=== PATIENT | female | born 1940 | race Caucasian/White ===

== ENCOUNTER → 2018-02-27 | Outpatient (CLI) | payer MEDICARE, BC ==
--- NOTE | 2018-02-27 15:46 | RAD ---
Left ankle, 3 views, 02/27/2018: HISTORY: Postop ankle pain Comparison is made to a study from 02/09/2018. A metallic plate with multiple screws remains in place transfixing the lateral malleolar fracture. 2 [address] screws remain in place traversing the medial malleolar fracture. The fracture fragments remain in good position for healing. No new bony abnormality is detected. There is mild diffuse soft tissue swelling. IMPRESSION: Stable internally fixed ankle fractures Electronically signed by: Maxim Patel MD (02/27/2018 3:43 PM) [facility]
== END | disposition home or self-care (01) ==
LOC: DXRAD 15:03
PROVIDERS: ATTEND Orthopaedic Surgery Sports Medicine
DX: S82.52XD Displaced fracture of medial malleolus of left tibia, subsequent encounter for closed fracture with routine healing (principal); S82.62XD Displaced fracture of lateral malleolus of left fibula, subsequent encounter for closed fracture with routine healing; X58.XXXD Exposure to other specified factors, subsequent encounter
CPT/HCPCS: 73610

== ENCOUNTER → 2018-03-17 | Outpatient (CLI) | payer MEDICARE, BC ==
--- NOTE | 2018-03-17 16:49 | RAD ---
Left ankle, 3 views, 03/17/2018: HISTORY: Postsurgical follow-up Comparison is made to a study from 02/27/2018. The internally fixed medial malleolar and distal fibular fractures remain in good position for healing. No new abnormality is detected. Electronically signed by: Maxim Patel MD (03/17/2018 4:46 PM) [facility]
== END | disposition home or self-care (01) ==
LOC: DXRAD 15:28
PROVIDERS: ATTEND Orthopaedic Surgery Sports Medicine
DX: S82.892G Other fracture of left lower leg, subsequent encounter for closed fracture with delayed healing (principal); M19.011 Primary osteoarthritis, right shoulder; X58.XXXD Exposure to other specified factors, subsequent encounter
CPT/HCPCS: 73610

== ENCOUNTER 2020-01-27 10:38 | Emergency (ER) | payer MEDICARE, BC ==
[~2020-01-27] VITALS: Ht 162.6 cm; Wt 92.1 kg
[2020-01-27] MEDS ORDERED: PRED20TA PO (11:09)
--- NOTE | 2020-01-27 11:09 | PHYS DOC ---
Past History Past Medical History: Dementia General Adult EDM: Chief Complaint: SKIN RASH/ABSCESS HPI: HPI: Patient is a 79-year-old female who presents to the emergency department for evaluation. She has a longstanding wound on her gluteal area, which was originally treated with antibiotics with penicillin, but the patient was reportedly allergic to this, so she was switched to Cipro about a week ago. She still appears to have 2 days remaining, but developed a diffuse urticarial rash, with some fine urticarial lesions on her abdomen and face. She has not had any difficulty breathing. She also had a new dressing put on the wound, and the patient's daughter suspects it might be the dressing that caused a diffuse allergic reaction, although the allergic reaction is not focal at the wound site. The patient herself has no complaints but is a poor historian due to her underlying dementia. Review of Systems: Review of Systems: Constitutional: Denies fever or chills Eyes: Denies change in visual acuity HENT: Denies nasal congestion or sore throat Respiratory: Denies cough or shortness of breath Cardiovascular: Denies chest pain or edema Musculoskeletal: Denies back pain or joint pain Integument: As per HPI Neurologic: Denies headache, focal weakness or sensory changes Heart Score: Risk Factors: Risk Factors: DM, Current or recent (<one month) smoker, HTN, HLP, family history of CAD, obesity. Risk Scores: Score 0 - 3: 2.5% MACE over next 6 weeks - Discharge Home Score 4 - 6: 20.3% MACE over next 6 weeks - Admit for Clinical Observation Score 7 - 10: 72.7% MACE over next 6 weeks - Early Invasive Strategies Allergies: Allergies: Allergies Coded Allergies Type Severity Reaction Last Updated Verified Penicillins Allergy Unknown 01/27/20 Yes Sulfa (Sulfonamide Antibiotics) Allergy Unknown 01/27/20 Yes codeine Allergy Unknown 01/27/20 Yes Physical Exam: PE: PHYSICAL EXAM: CONSTITUTIONAL: Well developed, well nourished HEAD: normocephalic, atraumatic EENT: PERRL, EOMI. Conjunctivae normal color, sclerae non-icteric; moist mucous membranes. The airway is patent. Voice is normal. NECK: Supple, non-tender; no meningismus. LUNGS: Lungs CTA, breathing even and unlabored. Normal air movement. HEART: Regular rate and rhythm, no murmur CHEST: No deformity; non-tender ABDOMEN: The abdomen is soft, and non-tender, no masses or bruits. EXTREM: Normal ROM; no deformity, no calf tenderness. Normal pulses palpable in all extremities. There is no pedal edema. SKIN: There is a scattered urticarial rash, with some fine urticarial lesions scattered on the abdomen and face. No other rash; no diaphoresis. There is a stage I decubitus ulcer in the gluteal region, without any obvious open wounds at this time. NEURO: Alert; normal speech, impaired cognition consistent with underlying dementia, CN's grossly intact; strength grossly intact without focal deficit. BACK: No CVA TTP. EKG: EKG: [] Radiology/Procedures: Radiology/Procedures: [] Dragon Disclaimer: Dragon Disclaimer: This electronic medical record was generated, in whole or in part, using a voice recognition dictation system. Departure Departure: Impression: Primary Impression: Allergic reaction Disposition: HOME/RESIDENCE PRIOR TO ADM Condition: STABLE Referrals: ZENOBIA TORRES MD (PCP) Patient Instructions: Allergies, Generic Additional Instructions: I would recommend stopping ciprofloxacin. Take Benadryl 25 mg every 6 hours as needed for itchiness or allergic symptoms. You may also use Pepcid AC 10 mg twice daily as needed. Take the steroids as prescribed. Follow-up with your PCP tomorrow to determine if further antibiotic treatment is necessary. Scripts Prednisone (PREDNISONE) 20 Mg Tablet 40 MG PO DAILY for - for 4 Days, #8 TAB Begin 01/28/20 Prov: CADENCE POWELL MD 01/27/20 Justification of Admission: Justification of Admission: Justification of Admission Dx: N/A CADENCE POWELL MD Jan 27, 2020 11:09
[2020-01-27] MEDS ORDERED: diphenhydrAMINE HCL 25 MG CAPSULE PO ONE (11:15)
[2020-01-27] MEDS ORDERED: predniSONE 20 MG TABLET PO ONE (11:15)
[2020-01-27 11:19] VITALS: BP 115/51
== END 2020-01-27 11:30 | disposition home or self-care (01) ==
LOC: ER 10:38
DX: R21 Rash and other nonspecific skin eruption (principal); T36.8X5A Adverse effect of other systemic antibiotics, initial encounter; Z88.0 Allergy status to penicillin; Z88.2 Allergy status to sulfonamides; Z88.5 Allergy status to narcotic agent; Y92.89 Other specified places as the place of occurrence of the external cause
CPT/HCPCS: 99283; J7512; Q0163

== ENCOUNTER 2020-05-24 04:55 | Inpatient (IN) | payer MEDICARE, BC ==
[~2020-05-24] VITALS: Ht 162.6 cm; Wt 90.1 kg
[~2020-05-24 04:55] MED LIST: PRED20TA PO
--- NOTE | 2020-05-24 05:02 | PHYS DOC ---
Past History Past Medical History: Anxiety, Arthritis, Bronchitis, CAD, CHF, Dementia, Heart Disease, UTI, Other Additional Past Medical Histor: ALZHEIMERS (MAUDE RICE MD) Past Surgical History: Appendectomy, Hysterectomy (MAUDE RICE MD) Alcohol Use: None (MAUDE RICE MD) General Adult HPI: HPI: ".. I guess.. I fell.. I don't know..." "..I pee..ed myself..".. "I don't know.." " I hit my ... head...".. 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 and pt. was on floor.. Reported initially she was changing chairs.. and fell hit her head." Patient is a 80 year old female who presents with above hx of fall and head injury. Patient has history of longstanding Alzheimer's and is a poor h istorian. Patient reportedly was transferring to chair and fell. Patient does complain of hitting head on fall. Patient recently taken off her Lasix and has developed increased leg edema and pain. In discussion with daughter pt. care in the home has become unmanageable due constantly lifting and supervision secondary to her generalized deconditioning and progression of her Alzheimer's. Daughter did come in as well as her son. Daughter's cell number [phone], [place] [phone]. Patient normally follows with Dr. Torres primary and Dr. Hawthorne for cardiology. Patient's healthcare treatment and directive-advises son and daughter to make decisions for her. Daughter advises focus should be on comfort care and to be a DNR- No intubation, CPR or Shocks. May have meds and basic radiology procedures. (MAUDE RICE MD) Review of Systems: Review of Systems: Pt. very poor historian Constitutional: Denies fever or chills Eyes: Denies change in visual acuity HENT: Denies nasal congestion or sore throat . Complaints of head contusion Respiratory: Denies cough or shortness of breath Cardiovascular: Complaints of increased leg edema GI: Denies abdominal pain, nausea, vomiting, bloody stools or diarrhea : Complains of incontinence Musculoskeletal: Complains of generalized leg pain more in the left due to edema Integument: Complaints of left lower leg rash Neurologic: Denies headache, focal weakness or sensory changes Endocrine: Denies polyuria or polydipsia Lymphatic: Denies swollen glands Psychiatric: Complains of depression and anxiety (MAUDE RICE MD) Family History: Family History: Noncontributory to presentation (MAUDE IRCE MD) Current Medications: Current Meds: See nursing for home meds (MAUDE RICE MD) Allergies: Allergies: Allergies Coded Allergies Type Severity Reaction Last Updated Verified Penicillins Allergy Unknown 01/27/20 Yes Sulfa (Sulfonamide Antibiotics) Allergy Unknown 01/27/20 Yes codeine Allergy Unknown 01/27/20 Yes (MAUDE RICE MD) Physical Exam: PE: Constitutional: Moderate acute distress, chronically ill and appearance. [] HENT: Normocephalic, contusion posterior scalp, bilateral external ears normal, oropharynx moist, no oral exudates, nose normal. [] Eyes: PERRLA, EOMI, conjunctiva normal, no discharge. [] Neck: Normal range of motion, mild upper neck tenderness, supple, no stridor. [] Cardiovascular:Heart rate regular rhythm, no murmur [PMI to the left Lungs & Thorax: Bilateral breath sounds equal at apex with scattered crackles throughout bases on auscultation [] Abdomen: Bowel sounds normal, soft, no tenderness, no masses, no pulsatile masses. Obese. Old surgery scars. Incontinent of urine. Skin: Warm, dry, no erythema, rash on lower left leg. Previous gluteal decub has now cleared since last visit Back: No tenderness, no CVA tenderness. [] Extremities: Lower leg tenderness, no cyanosis, no clubbing, ROM intact, lower leg pitting edema. [] Neurologic: Alert and oriented to name and is aware she is in a hospital, moves all extremities on request. Is able to walk with assistance, has distal sensory function, obvious memory issues Psychologic: Affect anxious, obviously impaired judgment and insight ( Hx of severe Alzheimer's), obvious memory issues, mood depressed (MAUDE RICE MD) Current Patient Data: Labs: Laboratory Tests Test 05/24/20 05:22 White Blood Count 13.7 x10^3/uL (4.0-11.0) Red Blood Count 3.74 x10^6/uL (3.50-5.40) Hemoglobin 11.7 g/dL (12.0-15.5) Hematocrit 35.9 % (36.0-47.0) Mean Corpuscular Volume 96 fL (79-100) Mean Corpuscular Hemoglobin 31 pg (25-35) Mean Corpuscular Hemoglobin Concent 33 g/dL (31-37) Red Cell Distribution Width 14.2 % (11.5-14.5) Platelet Count 341 x10^3/uL (140-400) Neutrophils (%) (Auto) 73 % (31-73) Lymphocytes (%) (Auto) 19 % (24-48) Monocytes (%) (Auto) 5 % (0-9) Eosinophils (%) (Auto) 2 % (0-3) Basophils (%) (Auto) 1 % (0-3) Neutrophils # (Auto) 10.0 x10^3uL (1.8-7.7) Lymphocytes # (Auto) 2.6 x10^3/uL (1.0-4.8) Monocytes # (Auto) 0.7 x10^3/uL (0.0-1.1) Eosinophils # (Auto) 0.2 x10^3/uL (0.0-0.7) Basophils # (Auto) 0.1 x10^3/uL (0.0-0.2) Urine Collection Type U cath Urine Color Straw Urine Clarity Cloudy Urine pH 7.0 Urine Specific Amoret 1.015 Urine Protein Neg (NEG-TRACE) Urine Glucose (UA) Neg mg/dL (NEG) Urine Ketones (Stick) Neg mg/dL (NEG) Urine Blood Neg (NEG) Urine Nitrite Pos (NEG) Urine Bilirubin Neg (NEG) Urine Urobilinogen Dipstick 0.2 mg/dL (0.2 mg/dL) Urine Leukocyte Esterase Mod (NEG) Urine RBC Occ /HPF (0-2) Urine WBC >40 /HPF (0-4) Urine Squamous Epithelial Cells Few /LPF Urine Bacteria Many /HPF (0-FEW) Sodium Level 125 mmol/L (136-145) Potassium Level 5.2 mmol/L (3.5-5.1) Chloride Level 94 mmol/L (98-107) Carbon Dioxide Level 24 mmol/L (21-32) Anion Gap 7 (6-14) Blood Urea Nitrogen 10 mg/dL (7-20) Creatinine 1.9 mg/dL (0.6-1.0) Estimated GFR (Cockcroft-Gault) 25.4 Glucose Level 87 mg/dL (70-99) Calcium Level 8.5 mg/dL (8.5-10.1) Magnesium Level 1.9 mg/dL (1.8-2.4) Total Bilirubin 0.4 mg/dL (0.2-1.0) Direct Bilirubin 0.1 mg/dL (0.0-0.2) Aspartate Amino Transf (AST/SGOT) 31 U/L (15-37) Alanine Aminotransferase (ALT/SGPT) 32 U/L (14-59) Alkaline Phosphatase 156 U/L (46-116) Creatine Kinase 50 U/L (26-192) Troponin I Quantitative < 0.017 ng/mL (0-0.055) WQ-Fnp-Z-Type Natriuretic Peptide 496 pg/mL (0-449) Total Protein 6.2 g/dL (6.4-8.2) Albumin 2.3 g/dL (3.4-5.0) Lipase 82 U/L (73-393) Vital Signs: Vital Signs Date Time Temp Pulse Resp B/P (MAP) Pulse Ox O2 Delivery O2 Flow Rate FiO2 05/24/20 05:07 97.4 71 18 129/62 (84) 96 Room Air (ML MONTALVO DO) EKG: EKG: My interpretation EKG shows a sinus rhythm at 72 bpm low voltage, no findings of acute STEMI with contralateral changes. (MAUDE RICE MD) Radiology/Procedures: Radiology/Procedures: [][place] [address] IMAGING REPORT Signed PATIENT: TIKA CERVANTES AACCOUNT: [id number] : 1940 LOCATION: ER AGE: 80 SEX: F EXAM STATUS: REG ER ORD. PHYSICIAN: MAUDE RICE MD REASON: fall, chf PROCEDURE: PORTABLE CHEST 1V INDICATION: Reason: fall, chf / Spl. Instructions: / History: COMPARISON: July 2011 FINDINGS: Single view of chest obtained. Enlarged cardiomediastinal silhouette with calcific atherosclerosis. There are some calcified lymph nodes in the mediastinum which could be sequela of old granulomatous disease. Mild interstitial opacities are again seen bilaterally. Degenerative changes of the spine IMPRESSION: * Enlarged cardiomediastinal silhouette with calcific atherosclerosis. * Mild interstitial opacities is again seen. Could be a chronic finding although mild pulmonary vascular congestion can have this appearance. Electronically signed by: Angela Prescott MD (05/24/2020 6:07 AM) [id number] DICTATED AND SIGNED BY: ANGELA PRESCOTT MD DATE: 05/24/2007 CC: ML MONTALVO DO; MAUDE RICE MD; ZENOBIA TORRES MD ~ (MAUDE RICE MD) Radiology/Procedures: PROCEDURE: CT HEAD AND CERVICAL SPINE WO INDICATION: Reason: fall , hit head / Spl. Instructions: / History: . COMPARISON: None. TECHNIQUE: Axial CT images obtained through the head and cervical spine. One or more of the following individualized dose reduction techniques were utilized for this examination: 1. Automated exposure control; 2. Adjustment of the mA and/or kV according to patient size; 3. Use of iterative reconstruction technique. FINDINGS: Head: No midline shift. Suprasellar cistern is not effaced. Prominence of the ventricles and sulci which can be seen with age-related volume loss. Calcific atherosclerosis. Multifocal low density throughout the white matter. Minimal prominence of the falx frontally but this may be secondary to motion artifact. A definite acute hemorrhage is not seen. Bowing of the nasal septum to the right. Small fluid in the sphenoid sinus. Cervical spine: Degenerative changes throughout the cervical spine with disc protrusions and osteophyte formation at the vertebral body endplates as well as facet and uncovertebral hypertrophy which contributes to multilevel central canal and neural foraminal stenosis. Grade 1 anterolisthesis of C4 on 5 with mild retrolisthesis of C5 on 6. Disc osteophyte complex with central canal narrowing at C5-6 and C6-7 are to the most prominent levels. No definite acute fracture or dislocation. IMPRESSION: * No definite acute intracranial hemorrhage. * Scattered foci of low density of the white matter. Nonspecific but can be seen with chronic small vessel ischemic disease. * Degenerative changes throughout the cervical spine with multilevel central canal and neural foraminal stenosis without a definite acute fracture. Electronically signed by: Angela Prescott MD (05/24/2020 7:03 AM) [id number] (ML MONTALVO DO) Heart Score: HEART Score for Chest Pain: HEART Score for Chest Pain Response (Comments) Value History Slighlty/Non-Suspicious 0 ECG Normal 0 Age > 65 2 Risk Factors 1 or 2 Risk Factors 1 Troponin < Normal Limit 0 Total 3 Risk Factors: Risk Factors: DM, Current or recent (<one month) smoker, HTN, HLP, family history of CAD, obesity. Risk Scores: Score 0 - 3: 2.5% MACE over next 6 weeks - Discharge Home Score 4 - 6: 20.3% MACE over next 6 weeks - Admit for Clinical Observation Score 7 - 10: 72.7% MACE over next 6 weeks - Early Invasive Strategies (MAUDE RICE MD) Course & Med Decision Making: Course & Med Decision Making Pertinent Labs and Imaging studies reviewed. (See chart for details) Pt. checked out to Dr. Montalvo at shift change. Labs and CT head pending. May need admit and possible eval. for [facility] placement since family state they unable to me her daily medical needs. Impression: 1. Fall 2. Head Injury 3. Advanced Alzheimer's 4. DNR-no intubation, no CPR, no shocks,-May have meds. Focus on comfort care [] (MAUDE RICE MD) Course & Med Decision Making Comprehensive signout reviewed from off going physician. Patient seen and examined by myself, certain portions of history and physical examination reperformed. Diagnostic work-up reviewed. I discussed findings of UTI and electrolyte abnormalities requiring hospital admission with patient and daughter who is POA, both were amenable for admission I discussed case with on-call hospitalist, Dr. Gibson, who agreed for admission under his care at [facility]. I discussed DNR status. Patient receiving 1 g Rocephin prior to transport to him. She appears fluid heavy and received a total of 80 mg IV Lasix in the ER. Also discussed with Dr. Gibson that family has been unable to care for patient recently, patient lives with son and is more difficult to care for now. They are interested in placement options. They are also interested in discussing hospice Updated plan of care reviewed with daughter and patient, they remained amenable to admission. All questions and concerns addressed prior to ER transport to [facility] for continued medical care (ML MONTALVO DO) Rejion Disclaimer: Dragon Disclaimer: This electronic medical record was generated, in whole or in part, using a voice recognition dictation system. (MAUDE RICE MD) Departure Departure: Impression: Primary Impression: UTI (urinary tract infection) Additional Impressions: Electrolyte disturbance Alzheimer disease DNR (do not resuscitate) Disposition: 09 ADMITTED INPT THIS HOSP Admitting Physician: Rigoberto Gibson (ML MONTALVO DO) Condition: STABLE Referrals: ZENOBIA TORRES MD (PCP) Adebayo Disclaimer This chart was dictated in whole or in part using Voice Recognition software in a busy, high-work load, and often noisy Emergency Department environment. It may contain unintended and wholly unrecognized errors or omissions. (MAUDE RICE MD) Dragon Disclaimer This chart was dictated in whole or in part using Voice Recognition software in a busy, high-work load, and often noisy Emergency Department environment. It may contain unintended and wholly unrecognized errors or omissions. (MAUDE RICE MD) MAUDE RICE MD May 24, 2020 05:02 ML MONTALVO DO May 24, 2020 06:57
[2020-05-24] MEDS ORDERED: FUROSEMIDE 20 MG/2 ML VIAL IVP ONE (05:15)
[2020-05-24] MEDS ORDERED: FUROSEMIDE 40 MG/4 ML VIAL ONE (05:35)
--- NOTE | 2020-05-24 06:00 | EKG ---
[address] [address] Test Date: 2020-05-24 Test Time: 05:41:08 Pat Name: TIKA CERVANTES Department: Room: Gender: F Wig Stylist: : 1940 Requested By: MAUDE RICE Order Number: [id number] Reading MD: Johnny Worley Measurements Intervals [place] Rate: 72 P: 247 MN: 148 QRS: 15 QRSD: 84 T: 7 QT: 420 QTc: 462 Interpretive Statements SINUS RHYTHM LOW LIMB LEAD VOLTAGE Electronically Signed On 05-27-2020 10:53:52 TECHNICAL HEALTHCARE CONSULTANT by Johnny Worley
[2020-05-24 06:08] LABS: CALCIUM 8.5 mg/dL (8.5-10.1); CREATININE 1.9 mg/dL (0.6-1.0); GFR 25.4; POTASSIUM 5.2 mmol/L (3.5-5.1)
--- NOTE | 2020-05-24 06:10 | RAD ---
INDICATION: Reason: fall, chf / Spl. Instructions: / History: COMPARISON: July 2011 FINDINGS: Single view of chest obtained. Enlarged cardiomediastinal silhouette with calcific atherosclerosis. There are some calcified lymph nodes in the mediastinum which could be sequela of old granulomatous disease. Mild interstitial opacities are again seen bilaterally. Degenerative changes of the spine IMPRESSION: * Enlarged cardiomediastinal silhouette with calcific atherosclerosis. * Mild interstitial opacities is again seen. Could be a chronic finding although mild pulmonary vascular congestion can have this appearance. Electronically signed by: Jose Prescott MD (05/24/2020 6:07 AM) [id number]
[2020-05-24 06:12] LABS: BASO # 0.1 x10^3/uL (0.0-0.2); BASO % 1 % (0-3); EOS # 0.2 x10^3/uL (0.0-0.7); EOS % 2 % (0-3); HEMATOCRIT 35.9 % (36.0-47.0); HEMOGLOBIN 11.7 g/dL (12.0-15.5); LYMPH # 2.6 x10^3/uL (1.0-4.8); LYMPH % 19 % (24-48); MEAN CORPUSCULAR HEMOGLOBIN 31 pg (25-35); MEAN CORPUSCULAR HGB CONC 33 g/dL (31-37); MEAN CORPUSCULAR VOLUME 96 fL (79-100); MONO # 0.7 x10^3/uL (0.0-1.1); MONO % 5 % (0-9); NEUT % 73 % (31-73); PLATELET COUNT 341 x10^3/uL (140-400); RED BLOOD COUNT 3.74 x10^6/uL (3.50-5.40); RED CELL DISTRIBUTION WIDTH 14.2 % (11.5-14.5); WHITE BLOOD COUNT 13.7 x10^3/uL (4.0-11.0)
[2020-05-24 06:20] LABS: ALBUMIN 2.3 g/dL (3.4-5.0); BACTERIA,URINE MANY /HPF (0-FEW); BILIRUBIN,URINE NEG (NEG); CLARITY,URINE CLOUDY; COLOR,URINE STRAW; DIRECT BILIRUBIN 0.1 mg/dL (0.0-0.2); GLUCOSE,URINE NEG (NEG); MAGNESIUM 1.9 mg/dL (1.8-2.4); NITRITE,URINE POS (NEG); RBC,URINE OCC /HPF (0-2); SQUAMOUS EPITHELIAL CELL,UR FEW /LPF; TOTAL BILIRUBIN 0.4 mg/dL (0.2-1.0); TOTAL PROTEIN 6.2 g/dL (6.4-8.2); UROBILINOGEN,URINE 0.2 mg/dL (0.2 mg/dL); WBC,URINE >40 /HPF (0-4)
--- NOTE | 2020-05-24 07:06 | RAD ---
INDICATION: Reason: fall , hit head / Spl. Instructions: / History: . COMPARISON: None. TECHNIQUE: Axial CT images obtained through the head and cervical spine. One or more of the following individualized dose reduction techniques were utilized for this examination: 1. Automated exposure control; 2. Adjustment of the mA and/or kV according to patient size; 3. Use of iterative reconstruction technique. FINDINGS: Head: No midline shift. Suprasellar cistern is not effaced. Prominence of the ventricles and sulci which can be seen with age-related volume loss. Calcific atherosclerosis. Multifocal low density throughout the white matter. Minimal prominence of the falx frontally but this may be secondary to motion artifact. A definite acute hemorrhage is not seen. Bowing of the nasal septum to the right. Small fluid in the sphenoid sinus. Cervical spine: Degenerative changes throughout the cervical spine with disc protrusions and osteophyte formation at the vertebral body endplates as well as facet and uncovertebral hypertrophy which contributes to multilevel central canal and neural foraminal stenosis. Grade 1 anterolisthesis of C4 on 5 with mild retrolisthesis of C5 on 6. Disc osteophyte complex with central canal narrowing at C5-6 and C6-7 are to the most prominent levels. No definite acute fracture or dislocation. IMPRESSION: * No definite acute intracranial hemorrhage. * Scattered foci of low density of the white matter. Nonspecific but can be seen with chronic small vessel ischemic disease. * Degenerative changes throughout the cervical spine with multilevel central canal and neural foraminal stenosis without a definite acute fracture. Electronically signed by: Jose Prescott MD (05/24/2020 7:03 AM) [id number]
--- NOTE | 2020-05-24 08:00 | NUR ---
The patient, TIKA CERVANTES, 80 y/o, F admitted by TOO ACHARYA MD, was given written information regarding hospital policies, unit procedures and contact persons. Valuables were checked and left at patients bedside. Will CTM.
[2020-05-24 08:42] LABS: BASO # 0.1 x10^3/uL (0.0-0.2); BASO % 1 % (0-3); EOS # 0.1 x10^3/uL (0.0-0.7); EOS % 1 % (0-3); HEMATOCRIT 36.7 % (36.0-47.0); HEMOGLOBIN 12.1 g/dL (12.0-15.5); LYMPH # 2.1 x10^3/uL (1.0-4.8); LYMPH % 14 % (24-48); MEAN CORPUSCULAR HEMOGLOBIN 32 pg (25-35); MEAN CORPUSCULAR HGB CONC 33 g/dL (31-37); MEAN CORPUSCULAR VOLUME 96 fL (79-100); MONO # 0.7 x10^3/uL (0.0-1.1); MONO % 5 % (0-9); NEUT # 12.3 x10^3uL (1.8-7.7); NEUT % 80 % (31-73); PLATELET COUNT 335 x10^3/uL (140-400); RED BLOOD COUNT 3.83 x10^6/uL (3.50-5.40); RED CELL DISTRIBUTION WIDTH 14.4 % (11.5-14.5); WHITE BLOOD COUNT 15.4 x10^3/uL (4.0-11.0)
[2020-05-24 08:50] VITALS: BP 126/67
[2020-05-24 08:52] LABS: ALBUMIN 2.3 g/dL (3.4-5.0); ALBUMIN/GLOBULIN RATIO 0.6 (1.0-1.7); CALCIUM 8.5 mg/dL (8.5-10.1); POTASSIUM 5.3 mmol/L (3.5-5.1); TOTAL BILIRUBIN 0.3 mg/dL (0.2-1.0)
[2020-05-24] MEDS ORDERED: POTA-163 PO (09:21)
[2020-05-24] MEDS ORDERED: DONE5TAB7 PO (09:21)
[2020-05-24] MEDS ORDERED: TRAZ-125 PO (09:21)
[2020-05-24] MEDS ORDERED: LISI-334 PO (09:21)
[2020-05-24] MEDS ORDERED: CITA20TA6 PO (09:21)
[2020-05-24] MEDS ORDERED: AMLO-186 PO (09:21)
[2020-05-24] MEDS ORDERED: ATORVASTATIN CA80 MG PO (09:21)
[2020-05-24] MEDS ORDERED: MEMA10TA PO (09:21)
[2020-05-24 09:27] LABS: % BANDS 3 % (0-9); % BASOS 1 % (0-3); % EOS 1 % (0-5); % LYMPHS 15 % (24-48); % MONOS 5 % (0-10); % SEGS 75 % (35-66); TOXIC GRANULATION PRESENT; TOXIC VACUOLATION PRESENT
[2020-05-24 09:28] LABS: PLT ESTIMATE ADEQUATE (ADEQUATE); POLYCHROMASIA PRESENT
[2020-05-24 11:02] VITALS: BP 107/54
[2020-05-24] MEDS: IV NORMAL SALINE 1,000ML 1,000 ML IV SCH ×2 (11:16→22:13)
--- NOTE | 2020-05-24 11:16 | HP ---
ADMIT DATE: 05/24/2020 ATTENDING PHYSICIAN: Dr. Acharya. CHIEF COMPLAINT: Fall at home. HISTORY OF PRESENT ILLNESS: The patient is an 80-year-old female with profound dementia due to Alzheimer's disease. She was transferring to a chair and fell. She did not have any significant injuries or long bone fractures. She has chronic UTIs and was found to have a serum sodium 125 mEq per liter. Basically, the daughter is unable to care for her at home. She is a DNR per advanced directive. She is admitted for further treatment of her hyponatremia, UTI and eventual hopefully placement. PAST MEDICAL HISTORY: Significant for Alzheimer's dementia, bronchitis, arthritis, coronary artery disease, dementia, heart disease and urinary tract infection. She has current medicines. ALLERGIES: She has allergies to PENICILLIN, SULFA and CODEINE. CURRENT MEDICATIONS: Reviewed. She is getting amlodipine, atorvastatin, lisinopril, Namenda, potassium and trazodone. She did receive Lasix in the ED. SOCIAL HISTORY: She is a nonsmoker, nondrinker. FAMILY HISTORY: Unobtainable. REVIEW OF SYSTEMS: Unobtainable due to the patient's confusion. PHYSICAL EXAMINATION: VITAL SIGNS: When I saw her, her blood pressure was 126/67, temperature 97.4 degrees Fahrenheit, oxygen saturation 93% on room air. HEENT: Head is without trauma. Pupils are reactive. Sclerae nonicteric. Oropharynx clear. NECK: Supple, no bruits. LUNGS: Otherwise clear. CARDIOVASCULAR: Showed regular heart tones. No gallops. ABDOMEN: Soft, obese, no organomegaly. Bowel sounds are normoactive. EXTREMITIES: Showed no cyanosis or edema. NEUROLOGIC: Pleasantly confused. She is nonambulatory at this time. We did not assess her gait. SKIN: Otherwise warm and dry. PERTINENT LABORATORY STUDIES: Hemoglobin is 12.1 g/dL with white count of 15,400. Cultures are pending. Serum sodium on admission was 125 mEq, potassium 5.2, creatinine 1.9 mg/dL. Two sets of cardiac enzymes negative for coronary ischemia. ASSESSMENT: 1. An 80-year-old female with frequent falls, inability to care for self. 2. Chronic hyponatremia due to diuretics. 3. Chronic kidney failure, stage 3. 4. Profound dementia. 5. Essential hypertension. 6. Degenerative arthritis. 7. Generalized debilitation. PLAN: 1. Admit to the inpatient unit. 2. I have assessed her. She does not appear volume overloaded. She will receive gentle IV hydration in the form of saline at 75 mL an hour. 3. Serial chemistries. 4. Diet as tolerated. 5. Social Service will see her for evaluation. I will discuss with the family as to what their expectations are in terms of management. 6. She will probably need jail placement next week. TOO ACHARYA MD DR: NATALIA/tal JOB#: [id number] / [id number] ZENOBIA Domingo MD
[2020-05-24] MEDS ORDERED: ASPI-630 PO (11:27)
[2020-05-24 14:44] VITALS: BP 125/45
[2020-05-24 20:10] VITALS: BP 120/63
[2020-05-24 23:37] VITALS: BP 110/54
[2020-05-25 04:04] VITALS: BP 121/51
--- NOTE | 2020-05-25 05:31 | NUR ---
Nursing note: Pt slept much of shift. No verbal or nonverbal c/o pain. Spoke with daughter, DPNING, regarding SNF concerns with [facility], social work/case management consult for placement/hospice eval. Pt BP improved from beginning of shift. Garcia present, draining appropriately. VSS.
[2020-05-25 07:00] VITALS: BP 114/51
[2020-05-25 09:58] LABS: CALCIUM 8.7 mg/dL (8.5-10.1); CREATININE 1.9 mg/dL (0.6-1.0); GFR 25.4; POTASSIUM 4.4 mmol/L (3.5-5.1)
[2020-05-25 11:00] VITALS: BP 111/54
[2020-05-25] MEDS: IV NORMAL SALINE 1,000ML 1,000 ML IV SCH (11:00)
[2020-05-25] MEDS: CITALOPRAM 20 MG TABLET. PO SCH (11:58)
[2020-05-25] MEDS: ASPIRIN CHEWABLE 81 MG TABLET. PO SCH (11:59)
[2020-05-25 15:00] VITALS: BP 121/61
--- NOTE | 2020-05-25 17:42 | PN ---
DATE: 05/25/2020 ATTENDING PHYSICIAN: Dr. Acharya. SUBJECTIVE: The patient is calm. She is pleasantly confused. She has no complaints. There is no obvious distress. OBJECTIVE FINDINGS: VITAL SIGNS: Blood pressure this morning is 121/51 mmHg, pulse is 70 and quite regular, temperature 96.5 degrees Fahrenheit, oxygen saturation 97% on room air. HEENT: Head is without trauma. Pupils are reactive. Sclerae nonicteric. Oropharynx is clear. NECK: Supple, no bruits. LUNGS: Otherwise clear. CARDIOVASCULAR: Showed regular heart tones. No gallops. ABDOMEN: Soft, no guarding. Good bowel sounds. EXTREMITIES: Without edema. NEUROLOGIC: Focally intact. Speech is pleasantly confused. We are in the process of assessing her gait. LABORATORY DATA: Chemistry panel is pending. ASSESSMENT: 1. An 80-year-old female with frequent falls, inability to care for herself at home. 2. Chronic hyponatremia due to diuretics. 3. Chronic kidney disease, stage 3. 4. Profound dementia. 5. Essential hypertension. 6. Degenerative arthritis. 7. Generalized debilitation. PLAN: 1. Continue IV hydration. 2. Serial chemistries. 3. Diet as tolerated. 4. Physical therapy evaluation. 5. Social Service will see her first thing tomorrow morning. They will consider placement if that is what the family wishes. It sounds like her son and daughter reached the point they cannot care for her at their respective houses. TOO ACHARYA MD DR: NATALIA/tal JOB#: [id number] / [id number]
[2020-05-25 19:36] VITALS: BP 104/66
[2020-05-25] MEDS: LACTOBACILLUS RHAMNOSUS GG 1 CAPSULE. PO SCH (20:29)
[2020-05-25 23:37] VITALS: BP 120/60
[2020-05-26 05:50] VITALS: BP 133/53
[2020-05-26 06:47] LABS: CALCIUM 8.3 mg/dL (8.5-10.1); CREATININE 1.8 mg/dL (0.6-1.0); GFR 27.1; POTASSIUM 4.3 mmol/L (3.5-5.1)
[2020-05-26] MEDS: ASPIRIN CHEWABLE 81 MG TABLET. PO SCH (08:17)
[2020-05-26] MEDS: CITALOPRAM 20 MG TABLET. PO SCH (08:17)
[2020-05-26] MEDS: LACTOBACILLUS RHAMNOSUS GG 1 CAPSULE. PO SCH ×2 (08:17→20:43)
[2020-05-26 11:45] VITALS: BP 112/54
[2020-05-26 15:50] VITALS: BP 133/71
--- NOTE | 2020-05-26 17:51 | PN ---
DATE: 05/26/2020 ATTENDING PHYSICIAN: Dr. Acharya. SUBJECTIVE: The patient is calm. She is pleasantly confused. She is sitting up. She ate all her breakfast. She is in no obvious distress. OBJECTIVE FINDINGS: VITAL SIGNS: Blood pressure today is 133/53, pulse 72 and regular. She is afebrile. Oxygen saturation 97% on room air. HEENT: Head is without trauma. Pupils are reactive. Sclerae nonicteric. Oropharynx is clear. NECK: Supple, no bruits identified. LUNGS: Actually clear. CARDIOVASCULAR: Showed regular heart tones. No gallops. ABDOMEN: Soft. EXTREMITIES: Without edema. SKIN: Warm and dry. NEUROLOGIC FINDINGS: Alert. Speech is fluent. Focally intact, pleasantly confused. ASSESSMENT: 1. An 80-year-old female with dementia and altered mentation, resolved. 2. Frequent falls at home. 3. Urinary tract infection, Escherichia coli sensitive to current antibiotics. 4. Hyponatremia due to diuretics, resolved. 5. Chronic kidney disease stage 3. 6. Essential hypertension. 7. Degenerative arthritis. PLAN: 1. Diet as tolerated. 2. Continue antibiotics. We will switch over to oral antibiotics at the time of discharge. 3. director of services helping with placement. TOO ACHARYA MD DR: NATALIA/tal JOB#: [id number] / [id number]
[2020-05-26 19:00] VITALS: BP 115/73
[2020-05-26 22:42] VITALS: BP 129/61
[2020-05-27 06:20] LABS: CALCIUM 8.1 mg/dL (8.5-10.1); CREATININE 1.8 mg/dL (0.6-1.0); GFR 27.1; POTASSIUM 4.2 mmol/L (3.5-5.1)
[2020-05-27 07:31] VITALS: BP 115/58
[2020-05-27] MEDS: CITALOPRAM 20 MG TABLET. PO SCH (08:16)
[2020-05-27] MEDS: LACTOBACILLUS RHAMNOSUS GG 1 CAPSULE. PO SCH (08:16)
[2020-05-27] MEDS: ASPIRIN CHEWABLE 81 MG TABLET. PO SCH (08:17)
--- NOTE | 2020-05-27 10:41 | DS ---
DATE OF DISCHARGE: 05/27/2020 ATTENDING PHYSICIAN: Dr. Acharya. FINAL DISCHARGE DIAGNOSES: 1. Altered mentation, resolved. 2. Frequent falls. 3. Underlying dementia. 4. Escherichia coli urinary tract infection, pansensitive. 5. Hyponatremia due to diuretics, corrected. 6. Chronic kidney disease stage 3. 7. Essential hypertension. 8. Degenerative arthritis. HISTORY OF PRESENT ILLNESS: This is a very pleasant 80-year-old female who has been cared for by her son and daughter at home. She has underlying dementia. She has been falling, sitting in her soiled pants, unable to get to the bathroom in time to urinate. She has been falling. She has reached a point in her life where she needs a higher level of care. The son and the daughter both are asking for help. She was admitted then with medical issues including UTI as well as the hyponatremia due to diuretics. PHYSICAL EXAMINATION: Please see my dictated note. PERTINENT LABORATORY AND X-RAY STUDIES: Her urine cultures grew out greater than 100,000 colonies of E. coli, which is pansensitive to all the antibiotics tested. Her hemoglobin was 12.1 g/dL, white count was 15,400. Chemistry panel on admission, sodium 126, repeated next day was 131 mEq and stabilized at 130 mEq/L. Potassium was 4.2 mEq. Creatinine went from 2.0 to 1.9 down to 1.8 g/dL with gentle IV hydration and cessation of her diuretics. Cardiac enzymes were negative for coronary ischemia. Transaminases were all within normal range. COURSE IN THE HOSPITAL: The patient was admitted. We stopped the diuretics. Serial chemistry showed an improvement in her creatinine. Electrolytes improved and sodium improved. She received 3 full days of intravenous Rocephin for her UTI. On the fourth hospital day, the patient's vital signs were stable. She was comfortable. She was in no acute distress. Arrangements were then made with the family with the patient to go to [facility] for continued subacute rehabilitation. Her discharge meds are as follows: She will have 4 more days of cephalexin 250 mg p.o. t.i.d. then stop. She will continue her amlodipine 5 mg daily, aspirin 81 mg daily, Lipitor 80 mg daily, citalopram 20 mg daily, lisinopril daily, and Namenda. For now, we stopped her Bumex, potassium, and trazodone doses. She is a DNR per advanced directives. The patient was then discharged from our hospital in stable condition with explicit instructions and followup care. TOTAL DISCHARGE TIME SPENT: 39 minutes. TOO ACHARYA MD DR: NATALIA/tal JOB#: [id number] / [id number] ZENOBIA Domingo MD
[2020-05-27 15:32] VITALS: BP 124/68
--- NOTE | 2020-05-27 16:23 | NUR ---
Patient discharged from ICU. Wheeled by RN to [facility] transportation van. All belongings and medications from pharmacy d/c with pt. discharge instructions and medication list sent with patient to go to RN at [facility]. Report given to Nataliya MOSCOSO at facility via phone. All questions answered. Yasmin MOSCOSO
== END 2020-05-27 16:23 | DRG 640 ==
LOC: ER 04:55 → ICU 06:57
PROVIDERS: ADMIT Hospitalist; ATTEND Hospitalist
DX: E87.1 Hypo-osmolality and hyponatremia (principal); E43 Unspecified severe protein-calorie malnutrition; N39.0 Urinary tract infection, site not specified; I13.0 Hypertensive heart and chronic kidney disease with heart failure and stage 1 through stage 4 chronic kidney disease, or unspecified chronic kidney disease; B96.20 Unspecified Escherichia coli [E. coli] as the cause of diseases classified elsewhere; Z66 Do not resuscitate; F02.80 Dementia in other diseases classified elsewhere, unspecified severity, without behavioral disturbance, psychotic disturbance, mood disturbance, and anxiety; G30.9 Alzheimer's disease, unspecified; I25.10 Atherosclerotic heart disease of native coronary artery without angina pectoris; I50.9 Heart failure, unspecified; M19.90 Unspecified osteoarthritis, unspecified site; M47.812 Spondylosis without myelopathy or radiculopathy, cervical region; N18.30 Chronic kidney disease, stage 3 unspecified; M48.02 Spinal stenosis, cervical region; S09.90XA Unspecified injury of head, initial encounter; W18.30XA Fall on same level, unspecified, initial encounter; T50.2X5A Adverse effect of carbonic-anhydrase inhibitors, benzothiadiazides and other diuretics, initial encounter; F41.9 Anxiety disorder, unspecified; Z20.828 Contact with and (suspected) exposure to other viral communicable diseases; Y93.89 Activity, other specified; Y99.8 Other external cause status; Y92.009 Unspecified place in unspecified non-institutional (private) residence as the place of occurrence of the external cause; Z79.82 Long term (current) use of aspirin; Z79.899 Other long term (current) drug therapy; Z90.49 Acquired absence of other specified parts of digestive tract; Z90.710 Acquired absence of both cervix and uterus; Z88.5 Allergy status to narcotic agent; Z88.0 Allergy status to penicillin; Z88.2 Allergy status to sulfonamides; Z68.34 Body mass index [BMI] 34.0-34.9, adult
CPT/HCPCS: 36415; 51702; 70450; 71045; 72125; 80048; 80053; 80076; 81001; 82550; 83690; 83735; 83880; 84443; 84484; 85007; 85025; 85379; 85610; 85730; 87077; 87086; 87186; 93005; 96374; J0696; U0003; 97110; 97530; 97535; 99285-25; J7030

== ENCOUNTER 2020-10-30 23:20 | Inpatient (IN) | payer MEDICARE, BC ==
[~2020-10-30] VITALS: Ht 162.6 cm; Wt 85.5 kg
[~2020-10-30 23:20] MED LIST changes: +AMLO-186 PO; +ASPI-630 PO; +ATORVASTATIN CA80 MG PO; +CITA20TA6 PO; +DONE5TAB7 PO; +LISI20TA18 PO; +MEMA10TA PO; +POTA-163 PO; +TRAZ-125 PO
--- NOTE | 2020-10-30 23:25 | PHYS DOC ---
Past History Past Medical History: Anxiety, Arthritis, Bronchitis, CAD, CHF, Dementia, Gallstones, Heart Disease, UTI, Other Additional Past Medical Histor: ALZHEIMERS Past Surgical History: Appendectomy, Hysterectomy Alcohol Use: None General Adult HPI: HPI: " Family states she has been weak tonight.. got dizzy standing up.... and they had to help her lay down.... the vomiting just started after we got here.. She just now had a diarrhea..." ".. I am her primary health care nurse.. and I know she got too much Easter chocolate earlier in the week.... And always because of the habit diarrhea.... But she had the shots now for a week straight.... She does take an Imodium in the morning and at night... And a Zofran in the morning if she needs it.... The not been around a bicycle has been a little change in diet other than maybe chocolate..." Patient is a 80 year old female who presents with weakness, vomiting and diarrhea.. Pt. earlier in had diarrhea in the week because of overdosing on Easter chocolate. This is taken away from her. Patient got up to go to the bathroom tonight and her manager golf stated that when she had her stand up to pivot she became dizzy. Oxygen Therapy Teacher had to help her to ground. Patient did not completely collapsed to the ground, but was assisted to ground by manager golf. Dizziness resolved after she was laying flat.. Patient currently having vomiting and diarrhea on arrival to the emergency department. No history of bad food intake with exception of excessive intake of Easter egg chocolate. Patient normally follows with Dr. Torres. Patient did have her first Covid shot and a second S2 on November 06. No history of travel. No history of ill contacts. Oxygen Therapy Teacher states patient never complains of pain given if she has reason for pain. Patient past history of Alzheimer's dementia, bronchitis, arthritis, coronary artery disease, heart disease, UTIs, hyponatremia, hypertension, chronic renal disease stage III. Patient normally follows with Dr. Torres as primary Dr. Hawthorne for cardiology, deconditioned Review of Systems: Review of Systems: Constitutional: Denies fever or chills Eyes: Denies change in visual acuity HENT: Denies nasal congestion or sore throat Respiratory: Denies cough or shortness of breath Cardiovascular: Denies chest pain or edema GI: Complains of abdominal pain, nausea, vomiting, and diarrhea : Denies dysuria Musculoskeletal: Denies back pain or joint pain Integument: Denies rash Neurologic: Denies headache, focal weakness or sensory changes Endocrine: Denies polyuria or polydipsia Lymphatic: Denies swollen glands Psychiatric: Denies depression or anxiety Family History: Family History: Noncontributory presentation Current Medications: Current Meds: See nursing for home meds Allergies: Allergies: Allergies Coded Allergies Type Severity Reaction Last Updated Verified ciprofloxacin Allergy Intermediate urticaria/ rash 09/28/20 Yes Penicillins Allergy Unknown 01/27/20 Yes Sulfa (Sulfonamide Antibiotics) Allergy Unknown 01/27/20 Yes codeine Allergy Unknown 01/27/20 Yes Physical Exam: PE: Constitutional: Moderate acute distress, non-toxic appearance. [] HENT: Normocephalic, atraumatic, bilateral external ears normal, oropharynx dry, no oral exudates, nose normal. [] Eyes: PERRLA, EOMI, conjunctiva normal, no discharge. [] Neck: Normal range of motion, no tenderness, supple, no stridor. [] Cardiovascular:Heart rate regular rhythm, no murmur, PMI to left Lungs & Thorax: Bilateral breath sounds equal apex with few scattered wheezes on auscultation [] Abdomen: Bowel sounds hyperactive, soft, mild generalized tenderness, no masses, no pulsatile masses. Currently vomiting and diarrhea at same time. Large pannus. Old surgery scars for appendectomy and hysterectomy Skin: Warm, dry, no erythema, no rash. Poor turgor Back: No tenderness, no CVA tenderness. [] Extremities: No tenderness, no cyanosis, no clubbing, ROM intact, no edema. Arthritic changes. No cording appreciated Neurologic: Alert and oriented X 3, moves all extremities on request, does have distal sensory, no focal deficits noted. [] Psychologic: Affect anxious, judgement at baseline according to manager golf,- chronic dementia Alzheimer's, mood normal. [] EKG: EKG: My interpretation EKG shows a sinus rhythm at 74 beats per minute. There are some nonspecific T wave changes anterior leads but no findings of acute STEMI or contralateral changes there is some baseline artifact due to a tremor [] Radiology/Procedures: Radiology/Procedures: [address] [id number] IMAGING REPORT Signed PATIENT: TIKA CERVANTES AACCOUNT: [id number] : 1940 LOCATION: ER AGE: 80 SEX: F EXAM STATUS: REG ER ORD. PHYSICIAN: MAUDE RICE MD REASON: OMNI 240, 30ML PO.Pain Rt. side PROCEDURE: CT ABD PEL W/ORAL CONTRST ONLY CT ABDOMEN+PELVIS W History: Reason: OMNI 240, 30ML PO.Pain Rt. side / Spl. Instructions: / History: Technique: Noncontrast examination of the abdomen and pelvis. Coronal and sagittal reconstructions were performed. Exposure: One or more of the following individualized dose reduction techniques were utilized for this examination: 1. Automated exposure control 2. Adjustment of the mA and/or kV according to patient size 3. Use of iterative reconstruction technique. Comparison: None Findings: Lower chest: Scattered linear atelectasis. Lipomatous hypertrophy of the interatrial septum. Abdomen and pelvis: The liver, spleen, and pancreas are unremarkable. Small left adrenal adenoma measures 8 mm. Cholelithiasis. No gallbladder wall thickening. No biliary ductal dilatation. Left renal cyst measures 1.5 cm. No hydronephrosis. Vascular calcifications. Nonspecific perinephric mild stranding. Tiny right inferior exophytic cyst measures 1 cm. Sigmoid colonic wall thickening with diverticulosis. Slight adjacent fat stranding. Appendix not well seen. No evidence of bowel obstruction. Oral contrast opacifies to the level of the colon. Subcutaneous infiltration within the left gluteal region, likely dependent edema. No pathologic lymphadenopathy. No ascites. Prior hysterectomy. Extensive atheromatous plaque throughout the nonaneurysmal abdominal aorta and branch vessels. Bifemoral bypass noted. 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 Bones: Altered level lumbar spondylosis most prominent L3-L4 and L5-S1. Canal narrowing most prominent L3-L4. Multilevel neuroforaminal narrowing. Impression: 1. Sigmoid colonic wall thickening with diverticulosis and slight adjacent fat stranding, may represent early diverticulitis or colitis. 2. Cholelithiasis. Electronically signed by: Lg Castellon DO (10/31/2020 2:28 AM) [facility] DICTATED AND SIGNED BY: LG CASTELLON DO DATE: 10/31/20 022 CC: MAUDE RICE MD; ZENOBIA TORRES MD ~MTH0 0 [][place] [address] IMAGING REPORT Signed PATIENT: TIKA CERVANTES AACCOUNT: [id number] : 1940 LOCATION: ER AGE: 80 SEX: F EXAM STATUS: REG ER ORD. PHYSICIAN: MAUED RICE MD REASON: n/v PROCEDURE: ACUTE ABDOMEN SERIES XR ABDOMEN COMP ACUTE History: Reason: n/v / Spl. Instructions: / History: Technique: Upright and supine views of the abdomen. Comparison: None. Findings: No consolidation or pleural effusion. Normal heart size. No pneumothorax. No pneumoperitoneum. Cholelithiasis. Mild small bowel gas. Air and stool throughout the colon. Lower lumbar spondylosis. Impression: 1. Nonobstructed bowel gas pattern. 2. Cholelithiasis. Electronically signed by: Lg Castellon DO (10/31/2020 12:44 AM) [facility] DICTATED AND SIGNED BY: LG CASTELLON DO DATE: 10/31/20 004 CC: MAUDE RICE MD; ZENOBIA TORRES MD ~MTH0 0 Heart Score: C/O Chest Pain: N/A HEART Score for Chest Pain: HEART Score for Chest Pain Response (Comments) Value History Slighlty/Non-Suspicious 0 ECG Nonspecific Repolarizatio 1 Risk Factors 1 or 2 Risk Factors 1 Troponin < Normal Limit 0 Total 2 Risk Factors: Risk Factors: DM, Current or recent (<one month) smoker, HTN, HLP, family history of CAD, obesity. Risk Scores: Score 0 - 3: 2.5% MACE over next 6 weeks - Discharge Home Score 4 - 6: 20.3% MACE over next 6 weeks - Admit for Clinical Observation Score 7 - 10: 72.7% MACE over next 6 weeks - Early Invasive Strategies Course & Med Decision Making: Course & Med Decision Making Pertinent Labs and Imaging studies reviewed. (See chart for details) Discussed presentation,testing and tx. plan with Dr. Sims. Pt. admitted to his service. Impression: 1. Nausea, vomiting and diarrhea-acute gastroenteritis 2. Dehydration 3. Syncope 4. History of Alzheimer's dementia 5. Galstones 6. Colitis/Diverticulitis 7. Leukocytosis 12.7 [] Dragon Disclaimer: Dragon Disclaimer: This electronic medical record was generated, in whole or in part, using a voice recognition dictation system. Departure Departure: Referrals: ZENOBIA TORRES MD (PCP) Adebayo Disclaimer This chart was dictated in whole or in part using Voice Recognition software in a busy, high-work load, and often noisy Emergency Department environment. It may contain unintended and wholly unrecognized errors or omissions. Dragon Disclaimer This chart was dictated in whole or in part using Voice Recognition software in a busy, high-work load, and often noisy Emergency Department environment. It may contain unintended and wholly unrecognized errors or omissions. MAUDE RICE MD Oct 30, 2020 23:25
--- NOTE | 2020-10-30 23:37 | EKG ---
[address] [address] Test Date: 2020-10-30 Test Time: 23:30:35 Pat Name: TIKA CERVANTES Department: Room: Gender: F Rn Gastroenterology: : 1940 Requested By: MAUDE RICE Order Number: [id number] Reading MD: Measurements Intervals [place] Rate: 74 P: 239 PA: 134 QRS: 10 QRSD: 94 T: 21 QT: 412 QTc: 458 Interpretive Statements SUPRAVENTRICULAR RHYTHM T ABNORMALITY IN ANTERIOR LEADS ABNORMAL ECG RI6.02 No previous ECG available for comparison
[2020-10-30] MEDS ORDERED: IV RINGERS SOLUTION,LACTATED 1,000 ML IV SCH (23:45)
[2020-10-30] MEDS ORDERED: FAMOTIDINE 20 MG/2 ML VIAL IVP ONE (23:45)
[2020-10-30] MEDS ORDERED: ONDANSETRON PF 4 MG/2 ML VIAL. IVP ONE (23:45)
[2020-10-30 23:53] LABS: BASO # 0.1 x10^3/uL (0.0-0.2); BASO % 1 % (0-3); EOS # 0.4 x10^3/uL (0.0-0.7); EOS % 3 % (0-3); HEMATOCRIT 36.2 % (36.0-47.0); HEMOGLOBIN 11.9 g/dL (12.0-15.5); LYMPH # 3.6 x10^3/uL (1.0-4.8); LYMPH % 28 % (24-48); MEAN CORPUSCULAR HEMOGLOBIN 32 pg (25-35); MEAN CORPUSCULAR HGB CONC 33 g/dL (31-37); MEAN CORPUSCULAR VOLUME 97 fL (79-100); MONO # 0.8 x10^3/uL (0.0-1.1); MONO % 6 % (0-9); NEUT # 7.8 x10^3uL (1.8-7.7); NEUT % 61 % (31-73); PLATELET COUNT 249 x10^3/uL (140-400); RED BLOOD COUNT 3.73 x10^6/uL (3.50-5.40); RED CELL DISTRIBUTION WIDTH 14.1 % (11.5-14.5); WHITE BLOOD COUNT 12.7 x10^3/uL (4.0-11.0)
[2020-10-31 00:19] LABS: ALBUMIN 2.3 g/dL (3.4-5.0); CALCIUM 8.4 mg/dL (8.5-10.1); CREATININE 2.5 mg/dL (0.6-1.0); DIRECT BILIRUBIN 0.1 mg/dL (0.0-0.2); GFR 18.5; POTASSIUM 4.3 mmol/L (3.5-5.1); TOTAL BILIRUBIN 0.2 mg/dL (0.2-1.0); TOTAL PROTEIN 5.8 g/dL (6.4-8.2)
[2020-10-31 00:36] LABS: BACTERIA,URINE 0 /HPF (0-FEW); BILIRUBIN,URINE NEG (NEG); CLARITY,URINE CLEAR; COLOR,URINE YELLOW; GLUCOSE,URINE NEG (NEG); NITRITE,URINE POS (NEG); RBC,URINE 0 /HPF (0-2); UROBILINOGEN,URINE 0.2 mg/dL (0.2 mg/dL); WBC,URINE 0 /HPF (0-4)
--- NOTE | 2020-10-31 00:47 | RAD ---
XR ABDOMEN COMP ACUTE History: Reason: n/v / Spl. Instructions: / History: Technique: Upright and supine views of the abdomen. Comparison: None. Findings: No consolidation or pleural effusion. Normal heart size. No pneumothorax. No pneumoperitoneum. Cholelithiasis. Mild small bowel gas. Air and stool throughout the colon. Lower lumbar spondylosis. Impression: 1. Nonobstructed bowel gas pattern. 2. Cholelithiasis. Electronically signed by: Lg Castellon DO (10/31/2020 12:44 AM) [facility]
[2020-10-31] MEDS ORDERED: IOHEXOL 240 MG/ML 50ML VIAL. ONE (01:04)
[2020-10-31 01:14] LABS: INFLUENZA A PATIENT NEGATIVE (NEGATIVE); INFLUENZA B PATIENT NEGATIVE (NEGATIVE)
--- NOTE | 2020-10-31 02:31 | RAD ---
CT ABDOMEN+PELVIS W History: Reason: OMNI 240, 30ML PO.Pain Rt. side / Spl. Instructions: / History: Technique: Noncontrast examination of the abdomen and pelvis. Coronal and sagittal reconstructions we re performed. Exposure: One or more of the following individualized dose reduction techniques were utilized for thi s examination: 1. Automated exposure control 2. Adjustment of the mA and/or kV according to patient size 3. Use of iterative reconstruction technique. Comparison: None Findings: Lower chest: Scattered linear atelectasis. Lipomatous hypertrophy of the interatrial septum. Abdomen and pelvis: The liver, spleen, and pancreas are unremarkable. Small left adrenal adenoma noah ures 8 mm. Cholelithiasis. No gallbladder wall thickening. No biliary ductal dilatation. Left renal cyst measures 1.5 cm. No hydronephrosis. Vascular calcifications. Nonspecific perinephric mild stranding. Tiny right inferior exophytic cyst measures 1 cm. Sigmoid colonic wall thickening with diverticulosis. Slight adjacent fat stranding. Appendix not well seen. No evidence of bowel obstruction. Oral contrast opacifies to the level of the colon. Subcutane ous infiltration within the left gluteal region, likely dependent edema. No pathologic lymphadenopath y. No ascites. Prior hysterectomy. Extensive atheromatous plaque throughout the nonaneurysmal abdomin al aorta and branch vessels. Bifemoral bypass noted. Chronic appearing occlusion of the left common i liac and external iliac arteries. Bones: Altered level lumbar spondylosis most prominent L3-L4 and L5-S1. Canal narrowing most prominen t L3-L4. Multilevel neuroforaminal narrowing. Impression: 1. Sigmoid colonic wall thickening with diverticulosis and slight adjacent fat stranding, may repres ent early diverticulitis or colitis. 2. Cholelithiasis. Electronically signed by: Lg Castellon DO (10/31/2020 2:28 AM) [facility]
[2020-10-31] MEDS ORDERED: VANCOMYCIN PER PHARMACY MC PRN (03:00)
[2020-10-31] MEDS ORDERED: ACETAMINOPHEN 325 MG TABLET PO PRN ×2 (03:00→14:00)
[2020-10-31] MEDS ORDERED: ONDANSETRON PF 4 MG/2 ML VIAL. IVP PRN (03:00)
[2020-10-31] MEDS ORDERED: VANCOMYCIN 1 GM VIAL. ONE (03:23)
[2020-10-31] MEDS ORDERED: IV NORMAL SALINE 250ML 250 ML ONE (03:23)
[2020-10-31] MEDS ORDERED: VANCOMYCIN 1 GM in IV NORMAL SALINE 250ML 250 ML IV ONE (03:30)
[2020-10-31] MEDS ORDERED: metroNIDAZOLE 500 MG TABLET PO ONE (03:30)
[2020-10-31] MEDS: IV RINGERS SOLUTION,LACTATED 1,000 ML IV SCH ×4 (04:07→22:45)
--- NOTE | 2020-10-31 04:27 | NUR ---
Unable to scan Vancomycin 1gm vial due to "unknown NDC number," called pharmacy and spoke to Gino who reports he is unable to add vial to medication formulary due to [facility] not having this specific auto fleet maintenance manager. Med and dose verified by this RN and Mekhi MOSCOSO and dose administered without scanning.
--- NOTE | 2020-10-31 04:56 | NUR ---
PT ADMITTED TO [facility] ACCOMPANIED BY NURSING ELECTRONICS MANUFACTURER. PT WAS ASSISTED X3 FROM GURNEY TO BED. PT ORIENTED TO SELF ONLY. PT IS POOR HISTORIAN. VS OBTAINED. PT HAS STRESS INCONTINENCE BUT CAN RECOGNIZE NEED FOR RESTROOM. DURING ASSESSMENT BY STATED SHE NEEDED TO HAVE A BOWEL MOVEMENT. THIS NURSE ASSISTED PT W/ WALKER TO BATHROOM. PT TOLERATED WALK W/ WALKER WELL. BED ALARM IN PLACE. CALL LIGHT IN REACH. WILL CONTINUE TO MONITOR.
[2020-10-31 05:02] VITALS: BP 139/65
[2020-10-31] MEDS ORDERED: DONE5TAB7 PO (05:02)
[2020-10-31] MEDS ORDERED: BENZ200C47 PO (05:02)
[2020-10-31] MEDS ORDERED: BUDE10.2 INH (05:02)
[2020-10-31] MEDS ORDERED: CARB100T4 PO (05:02)
[2020-10-31] MEDS ORDERED: NYST15OI TP (05:02)
--- NOTE | 2020-10-31 05:35 | NUR ---
Pharmacy Vancomycin Dosing Note S:Consulted to monitor and dose vancomycin started 10/31/20. O:TIKA CERVANTES is a 80 year old F with , COLITIS . Height: 5 feet, 4 inches Weight: 80.1 kg [place] Body Weight: 54.70 Adjusted Body Weight: 64.86 Dosing Weight: Actual Other Antibiotics: METRONIDAZOLE 500 TID LABS: Last BUN: 22 Last Creatinine: 2.5 Creatinine Clearance: 19 Last WBC: 12.7 Last Procalcitonin: Tmax (past 24 hours): Microbiology: I/O: Drug Levels: Last level: on at Last dose given 10/31/20 at 0330 Vancomycin Dosing: Loading Dose: 1000 mg x1 Dosing Weight: Actual Target Trough: 10-20 A: Based on: WT AND CRCL P: 1. Begin Vancomycin 1250 mg IV Dose Per Levels 2. Follow up Random level on 11/01/20 at 0500 3. Pharmacy will continue to monitor, follow and adjust therapy as needed. AMANDA GARCIA RPH, 10/31/20 0536 Signed: 10/31/20 at 0536 by AMANDA GARCIA RPH PHA
[2020-10-31] MEDS ORDERED: IPRATRPIUM/ALBUTEROL 0.5/2.5MG 3 ML NEBU. NEB SCH (08:00)
[2020-10-31] MEDS ORDERED: VANCOMYCIN 1 GM in IV NORMAL SALINE 250ML 250 ML IV SCH (09:00)
[2020-10-31] MEDS: FLUTICASONE/VILANTEROL 100/25 INHALER. INH SCH (09:00)
[2020-10-31 11:02] VITALS: BP 120/68
--- NOTE | 2020-10-31 12:35 | HP ---
ADMIT DATE: 10/31/2020 HISTORY OF PRESENT ILLNESS: The patient is an 80-year-old female patient, who was brought to the Emergency Room with recurrent bouts of nausea, vomiting as well as diarrhea. She also got dizzy standing up. They had to help her lay down. Apparently, her daughter stated that she has eaten too much Easter chocolate earlier in the week and always because of the habit, diarrhea, but she has had shots now for a week straight. She does take an Imodium in the morning and at nighttime and the Zofran in the morning if she needs it. She apparently has had diarrhea in the week because of overdosing on Easter chocolate, is taken away from her. The patient got up to go to the bathroom and supply chain specialist stated that when she had her stand up to pivot, she became dizzy, supply chain specialist had to help her to the ground. The patient did not completely collapse to the ground, but was assisted to the ground by supply chain specialist. Dizziness resolved after she was lying flat. The patient is currently having vomiting and diarrhea on arrival to the Emergency Room. There is no history of bad food intake with the exception of excessive intake of Easter egg chocolate. The patient normally follows with Dr. Aragon. The patient did have her first COVID shot and her second one will be on 11/06. There is no history of travel. No history of ill contact. The supply chain specialist states that the patient never complained of any pain given the patient has a history of Alzheimer's dementia, generalized osteoarthritis, coronary artery disease, heart disease, UTI, hyponatremia, hypertension, chronic renal disease. She normally follows with Dr. Aragon and her primary public health specialist, Dr. Hawthorne. She was extensively investigated in the Emergency Room and had an EKG, which showed that she was in sinus rhythm at a rate of 74 beats per minute. Her lab work showed there was mild leukocytosis with a white cell count 12,700. She has anemia. Her chemistry showed that she is probably dehydrated, has [id number] kidney injury and her prothrombin time, INR and D-dimer were normal. Her urinalysis was essentially unremarkable and her influenza A and B were negative. She was tested for coronavirus by PCR and also has an order to check stool for C. diff. She was treated with IV vancomycin and Flagyl as well as lactated Ringer. PAST MEDICAL HISTORY: Significant for hypertension, chronic renal insufficiency, chronic back pain and generalized osteoarthritis. PAST SURGICAL HISTORY: Unremarkable. FAMILY HISTORY: Positive for coronary artery disease. SOCIAL HISTORY: She lives with her daughter. She continued to smoke, does not drink alcohol or use any recreational drugs. ALLERGIES: SHE IS ALLERGIC TO PENICILLIN, SULFA DRUGS, CIPROFLOXACIN AND CODEINE. MEDICATIONS: She is currently on following medications: She is on Aricept 5 mg at bedtime, atorvastatin calcium 80 mg at bedtime, amlodipine 5 mg daily, lisinopril 20 mg once a day, aspirin 81 mg once a day, carbamazepine, she takes 150 mg chewable tablet at bedtime, citalopram hydrobromide 20 mg at bedtime, trazodone 100 mg at bedtime, Namenda 5 mg twice a day, potassium chloride 20 mEq daily, benzonatate 200 mg 3 times a day as needed. She is on Symbicort 160/4.5 mcg inhaler 1 puff twice a day. She is also on nystatin ointment applied topically as needed. PHYSICAL EXAMINATION: GENERAL: On arrival to the Emergency Room, the patient looked well and was clearly in no apparent respiratory distress. No pallor, jaundice, cyanosis or thyromegaly. No jugular venous distention. No lower limb edema. VITAL SIGNS: Her heart rate was 65, blood pressure 145/54, temperature was 97.3, respiratory rate was 17 and oxygen saturation was 97% on room air. HEAD, EYES, EARS, NOSE AND THROAT: Showed normocephalic, atraumatic. NECK: Supple. HEART: Showed normal first and second heart sounds. No gallop or murmur. CHEST: Clear to auscultation. No crepitation or rhonchi. ABDOMEN: Distended, soft, nontender. NEUROLOGIC: She is demented, but without any obvious lateralizing sign. All her cranial nerves intact. EXTREMITIES: She moves extremities without difficulty. LABORATORY DATA: Her lab work on arrival showed a white cell count 12,700, hemoglobin 11.9, hematocrit 36.2, MCV 97 and platelet count 246,000 with normal manual differential. Her chemistry showed a serum sodium 135, potassium 4.3, chloride 104, bicarbonate 22, anion gap of 9, BUN 22, creatinine 2.5, estimated GFR was 18.5, glucose 127, calcium was 8.4. Total bilirubin, AST, ALT, alkaline phosphatase were normal. Total protein was 5.8, albumin 2.3. Amylase and lipase were normal. Her prothrombin time, INR and aPTT are normal. Urinalysis was essentially unremarkable. Her influenza A and B were negative. ASSESSMENT AND PLAN: The patient was treated with normal saline and IV famotidine, continue lactated Ringer's and started on Flagyl as well as vancomycin. She was swabbed for coronavirus by PCR as well as an order for stool to be sent for Clostridium difficile toxin. Plan is to continue obviously with the lactated Ringer's. I will discontinue vancomycin, Flagyl and switch her to Zosyn and once we have the result of the final diagnosis of acute colitis/diverticulitis, if Clostridium difficile toxins became positive, we will treat her with oral vancomycin. KEESHA PRO MD DR: KIM/tal JOB#: [id number] / [id number]
[2020-10-31] MEDS ORDERED: metroNIDAZOLE 500 MG TABLET PO SCH (14:00)
[2020-10-31] MEDS: MEROPENEM 500 MG in IV NORMAL SALINE 50ML 50 ML IV SCH (14:20)
[2020-10-31] MEDS: ASPIRIN CHEWABLE 81 MG TABLET. PO SCH (14:20)
[2020-10-31] MEDS: LISINOPRIL 20 MG TABLET PO SCH (14:21)
[2020-10-31] MEDS: LOPERAMIDE 2 MG CAPSULE PO PRN (14:21)
[2020-10-31] MEDS: POTASSIUM CHLORIDE 20 MEQ TABLET.ER. PO SCH (14:21)
[2020-10-31] MEDS: BENZONATATE 100 MG CAPSULE. PO PRN (14:21)
[2020-10-31] MEDS: MEMANTINE 5 MG TABLET. PO SCH ×2 (14:21→21:22)
[2020-10-31] MEDS: amLODIPine BESYLATE 5 MG TABLET PO SCH (14:22)
[2020-10-31 14:56] VITALS: BP 134/64
[2020-10-31 18:21] VITALS: BP 117/60
[2020-10-31] MEDS: NYSTATIN 100,000 UNIT/GM TOPICAL OINTMENT 15GM TUBE. TP SCH (21:00)
[2020-10-31] MEDS: NICOTINE 21MG PATCH. TD SCH (21:15)
[2020-10-31] MEDS: traZODone 100 MG TABLET. PO SCH (21:22)
[2020-10-31] MEDS: carBAMazepine 100 MG TAB.CHEW PO SCH (21:23)
[2020-10-31] MEDS: CITALOPRAM 20 MG TABLET. PO SCH (21:23)
[2020-10-31] MEDS: ATORVASTATIN CALCIUM 20 MG TABLET PO SCH (21:23)
[2020-10-31] MEDS: DONEPEZIL HCL 5 MG TABLET. PO SCH (21:23)
[2020-10-31 22:00] VITALS: BP 115/55
[2020-11-01] MEDS: MEROPENEM 500 MG in IV NORMAL SALINE 50ML 50 ML IV SCH ×2 (01:34→13:00)
--- NOTE | 2020-11-01 04:57 | NUR ---
PT IS ALERT TO SELF THIS EVENING UNABLE TO USE CALL LIGHT WHEN IN NEED. PT IS X1 ASSIST WITH WALKER UP TO TOILET, ALSO PT IS INCONTINENT OF BOWEL AND BLADDER. PT HAS FIRST NEG CDIFF NEED 2 MORE NEG STOOL SAMPLES TO GET PT OUT OF PRECAUTIONS. PT HAD NO COMPLAINTS THIS EVENING, ALS PT DIDN'T SLEEP WELL. CURRENTLY RESTING IN BED.
[2020-11-01] MEDS ORDERED: VANCOMYCIN RANDOM LEVEL. MC ONE (05:00)
[2020-11-01] MEDS: IV RINGERS SOLUTION,LACTATED 1,000 ML IV SCH ×3 (05:00→15:01)
[2020-11-01 05:25] VITALS: BP 124/78
[2020-11-01 08:03] LABS: BASO # 0.1 x10^3/uL (0.0-0.2); BASO % 1 % (0-3); EOS # 0.4 x10^3/uL (0.0-0.7); EOS % 4 % (0-3); HEMATOCRIT 37.9 % (36.0-47.0); HEMOGLOBIN 12.3 g/dL (12.0-15.5); LYMPH # 1.4 x10^3/uL (1.0-4.8); LYMPH % 12 % (24-48); MEAN CORPUSCULAR HEMOGLOBIN 32 pg (25-35); MEAN CORPUSCULAR HGB CONC 33 g/dL (31-37); MEAN CORPUSCULAR VOLUME 99 fL (79-100); MONO # 0.5 x10^3/uL (0.0-1.1); MONO % 4 % (0-9); NEUT # 9.9 x10^3uL (1.8-7.7); NEUT % 80 % (31-73); PLATELET COUNT 212 x10^3/uL (140-400); RED BLOOD COUNT 3.82 x10^6/uL (3.50-5.40); RED CELL DISTRIBUTION WIDTH 14.1 % (11.5-14.5); WHITE BLOOD COUNT 12.4 x10^3/uL (4.0-11.0)
[2020-11-01] MEDS: MEMANTINE 5 MG TABLET. PO SCH ×2 (08:03→21:03)
[2020-11-01] MEDS: FLUTICASONE/VILANTEROL 100/25 INHALER. INH SCH (08:03)
[2020-11-01] MEDS: LISINOPRIL 20 MG TABLET PO SCH (08:03)
[2020-11-01] MEDS: amLODIPine BESYLATE 5 MG TABLET PO SCH (08:04)
[2020-11-01] MEDS: ASPIRIN CHEWABLE 81 MG TABLET. PO SCH (08:04)
[2020-11-01] MEDS: POTASSIUM CHLORIDE 20 MEQ TABLET.ER. PO SCH (08:05)
[2020-11-01] MEDS: NICOTINE 21MG PATCH. TD SCH (08:06)
[2020-11-01 08:40] LABS: ALBUMIN/GLOBULIN RATIO 0.5 (1.0-1.7); CALCIUM 8.1 mg/dL (8.5-10.1); POTASSIUM 4.5 mmol/L (3.5-5.1); TOTAL BILIRUBIN 0.4 mg/dL (0.2-1.0); TOTAL PROTEIN 6.2 g/dL (6.4-8.2)
[2020-11-01 11:00] VITALS: BP 125/47
[2020-11-01] MEDS ORDERED: DIGOXIN IV 500 MCG/2 ML AMPUL. IV ONE (14:30)
[2020-11-01] MEDS: ENOXAPARIN 30 MG/0.3 ML SYRINGE. SQ SCH (15:01)
[2020-11-01 15:47] VITALS: BP 133/77
--- NOTE | 2020-11-01 16:12 | RAD ---
Exam: Chest one view INDICATION: Hypoxia TECHNIQUE: Frontal view of the chest Comparisons: 05/24/2020 FINDINGS: The cardiomediastinal silhouette and pulmonary vessels are within normal limits. Mild hazy airspace disease in lungs bilaterally. No pleural effusion. IMPRESSION: Findings likely related to mild pulmonary edema. Electronically signed by: Maame Jacinto MD (11/01/2020 4:09 PM) [place]
--- NOTE | 2020-11-01 18:51 | PN ---
DATE: 11/01/2020 SUBJECTIVE: The patient is resting, slightly propped up in bed, in no apparent respiratory distress. She is awake, alert, denied any complaint. Her C. diff was negative. She has no more episodes of nausea, vomiting or diarrhea. However, her urine culture has grown more than 100,000 colony forming units per mL of gram-negative rods identified as Escherichia coli. She is also hypoxic and on room air is only 88%. She is now on 2 liters of oxygen, maintaining her oxygen saturation at 91%. PHYSICAL EXAMINATION: GENERAL: When I examined her, she looked pale, no jaundice or cyanosis. No lymphadenopathy, no thyromegaly. No jugular venous distention. No lower limb edema. VITAL SIGNS: Her heart rate was 68, blood pressure was 125/47, temperature 97.6, respiratory rate was 18 and oxygen saturation was 98%. HEENT: Showed normocephalic, atraumatic. NECK: Supple. HEART: Showed normal first and second heart sounds. No gallop, rub or murmur. CHEST: Clear to auscultation. No crepitation or rhonchi. ABDOMEN: Distended, soft, nontender. NEUROLOGIC: She was grossly intact. Her intake over the last 24 hours was 1100, no output was recorded. LABORATORY DATA: Her lab work this morning showed a white cell count 12,400, hemoglobin 12, hematocrit 37, MCV 99 and platelet count 212,000. Her chemistry this morning showed a serum sodium 136, potassium 4.5, chloride 105, bicarbonate 20, anion gap of 11, BUN 14, creatinine 2, estimated GFR was 24 mL per minute. Her glucose was 86, calcium was 8.1. Total bilirubin is normal. AST, ALT, alkaline phosphatase slightly elevated. Total protein 6.2, albumin 2. Her C. diff toxin by PCR was negative. Influenza A and B were negative. The coronavirus-2 PCR is still pending at the time of this dictation. ASSESSMENT: 1. The patient was admitted with recurrent bouts of nausea, vomiting and diarrhea, started on IV fluid, her stool for C. diff was negative. 2. Urinary tract infection with growth of more than 100,000 colony forming units per mL. The sensitivity is still pending. 3. The patient was swabbed for coronavirus-2 PCR, the results of which are still pending at the time of this dictation. 4. Acute hypoxic respiratory failure for which now on ____ liters oxygen by nasal cannula, maintaining her oxygen saturation at 91-92%. PLAN: My plan is to continue with IV meropenem for the time being. I will repeat her chest x-ray and her lab work tomorrow and if her coronavirus-2 PCR is negative she can be discharged home with oral antibiotic for UTI. KEESHA PRO MD DR: KIM/tal JOB#: [id number] / [id number]
[2020-11-01 19:00] VITALS: BP 129/72
[2020-11-01] MEDS: NYSTATIN 100,000 UNIT/GM TOPICAL OINTMENT 15GM TUBE. TP SCH (21:00)
[2020-11-01] MEDS: BENZONATATE 100 MG CAPSULE. PO PRN (21:02)
[2020-11-01] MEDS: traZODone 100 MG TABLET. PO SCH (21:02)
[2020-11-01] MEDS: DONEPEZIL HCL 5 MG TABLET. PO SCH (21:03)
[2020-11-01] MEDS: ATORVASTATIN CALCIUM 20 MG TABLET PO SCH (21:03)
[2020-11-01] MEDS: CITALOPRAM 20 MG TABLET. PO SCH (21:03)
[2020-11-01] MEDS: carBAMazepine 100 MG TAB.CHEW PO SCH (21:03)
[2020-11-01 22:34] VITALS: BP 99/54
[2020-11-02] MEDS: MEROPENEM 500 MG in IV NORMAL SALINE 50ML 50 ML IV SCH ×2 (01:38→14:47)
--- NOTE | 2020-11-02 04:40 | NUR ---
Pt pleasant, smiling and interactive. She is med compliant. She c/o pain in the right flank/abdominal area. She states,"it is hard to tell you exact where it hurts," pointing to her side. She rates her pain 4/10, intermittently. Pt slept off and on through the night. She ambulates x1 assist d/t unsteadiness. She has a productive cough. Will continue to monitor.
[2020-11-02 05:24] VITALS: BP 135/73
[2020-11-02] MEDS: LOPERAMIDE 2 MG CAPSULE PO PRN (05:37)
[2020-11-02 08:05] LABS: HEMATOCRIT 35.7 % (36.0-47.0); HEMOGLOBIN 11.8 g/dL (12.0-15.5); RED BLOOD COUNT 3.73 x10^6/uL (3.50-5.40); RED CELL DISTRIBUTION WIDTH 13.7 % (11.5-14.5); WHITE BLOOD COUNT 8.6 x10^3/uL (4.0-11.0)
[2020-11-02] MEDS: ASPIRIN CHEWABLE 81 MG TABLET. PO SCH (08:10)
[2020-11-02] MEDS: MEMANTINE 5 MG TABLET. PO SCH ×2 (08:10→21:06)
[2020-11-02] MEDS: POTASSIUM CHLORIDE 20 MEQ TABLET.ER. PO SCH (08:10)
[2020-11-02] MEDS: amLODIPine BESYLATE 5 MG TABLET PO SCH (08:11)
[2020-11-02] MEDS: LISINOPRIL 20 MG TABLET PO SCH (08:11)
[2020-11-02] MEDS: NICOTINE 21MG PATCH. TD SCH (08:13)
[2020-11-02 08:18] LABS: ALBUMIN 1.9 g/dL (3.4-5.0); ALBUMIN/GLOBULIN RATIO 0.5 (1.0-1.7); CREATININE 1.9 mg/dL (0.6-1.0); GFR 25.4; POTASSIUM 3.9 mmol/L (3.5-5.1); TOTAL BILIRUBIN 0.3 mg/dL (0.2-1.0); TOTAL PROTEIN 5.6 g/dL (6.4-8.2)
[2020-11-02] MEDS: FLUTICASONE/VILANTEROL 100/25 INHALER. INH SCH (08:19)
[2020-11-02 10:52] VITALS: BP 139/70
[2020-11-02] MEDS: IV RINGERS SOLUTION,LACTATED 1,000 ML IV SCH ×2 (14:39→17:11)
[2020-11-02 14:41] VITALS: BP 140/74
[2020-11-02] MEDS: ENOXAPARIN 30 MG/0.3 ML SYRINGE. SQ SCH (14:47)
[2020-11-02] MEDS ORDERED: FUROSEMIDE 40 MG/4 ML VIAL IVP ONE (15:00)
[2020-11-02 20:13] VITALS: BP 158/84
[2020-11-02] MEDS: NYSTATIN 100,000 UNIT/GM TOPICAL OINTMENT 15GM TUBE. TP SCH (21:00)
[2020-11-02] MEDS: CITALOPRAM 20 MG TABLET. PO SCH (21:06)
[2020-11-02] MEDS: traZODone 100 MG TABLET. PO SCH (21:06)
[2020-11-02] MEDS: carBAMazepine 100 MG TAB.CHEW PO SCH (21:06)
[2020-11-02] MEDS: ATORVASTATIN CALCIUM 20 MG TABLET PO SCH (21:06)
[2020-11-02] MEDS: DONEPEZIL HCL 5 MG TABLET. PO SCH (21:06)
[2020-11-03] MEDS: MEROPENEM 500 MG in IV NORMAL SALINE 50ML 50 ML IV SCH (00:43)
[2020-11-03] MEDS: IV RINGERS SOLUTION,LACTATED 1,000 ML IV SCH (01:21)
[2020-11-03 06:09] VITALS: BP 138/78
[2020-11-03 06:37] LABS: BASO % 1 % (0-3); EOS # 0.3 x10^3/uL (0.0-0.7); EOS % 4 % (0-3); HEMATOCRIT 36.4 % (36.0-47.0); HEMOGLOBIN 12.3 g/dL (12.0-15.5); LYMPH # 1.2 x10^3/uL (1.0-4.8); LYMPH % 13 % (24-48); MEAN CORPUSCULAR HEMOGLOBIN 32 pg (25-35); MEAN CORPUSCULAR HGB CONC 34 g/dL (31-37); MEAN CORPUSCULAR VOLUME 94 fL (79-100); MONO # 0.6 x10^3/uL (0.0-1.1); MONO % 7 % (0-9); NEUT # 6.9 x10^3uL (1.8-7.7); NEUT % 76 % (31-73); PLATELET COUNT 209 x10^3/uL (140-400); RED BLOOD COUNT 3.85 x10^6/uL (3.50-5.40); RED CELL DISTRIBUTION WIDTH 13.5 % (11.5-14.5); WHITE BLOOD COUNT 9.1 x10^3/uL (4.0-11.0)
[2020-11-03 06:43] LABS: CALCIUM 8.1 mg/dL (8.5-10.1); CREATININE 1.9 mg/dL (0.6-1.0); GFR 25.4; POTASSIUM 3.5 mmol/L (3.5-5.1)
[2020-11-03] MEDS ORDERED: POTASSIUM CHLORIDE 20 MEQ TABLET.ER. PO SCH (08:00)
[2020-11-03] MEDS: NICOTINE 21MG PATCH. TD SCH (08:02)
[2020-11-03] MEDS: POTASSIUM CHLORIDE 20 MEQ TABLET.ER. PO SCH (08:05)
[2020-11-03] MEDS: FLUTICASONE/VILANTEROL 100/25 INHALER. INH SCH (08:06)
[2020-11-03] MEDS: MEMANTINE 5 MG TABLET. PO SCH (08:06)
[2020-11-03] MEDS: ASPIRIN CHEWABLE 81 MG TABLET. PO SCH (08:06)
[2020-11-03] MEDS: amLODIPine BESYLATE 5 MG TABLET PO SCH (09:21)
[2020-11-03] MEDS: LISINOPRIL 20 MG TABLET PO SCH (09:21)
[2020-11-03 11:04] VITALS: BP 128/75
--- NOTE | 2020-11-03 13:07 | NUR ---
pt at rest on 2L of o2 with SAO2 at 97 to 98 %. This RN got pt up and ambulated with portable pulse oximeter and oxygen. pts oxygen saturation dropped to 86 to 85 % upon ambulation.
[2020-11-03] MEDS ORDERED: DOXY100C2 PO (13:25)
--- NOTE | 2020-11-03 14:43 | NUR ---
Discharge note Pt discharged at 1441 via wheelchair accompanied by family member written and verbal instructions given to family member and pt with verbal statement of understanding
--- NOTE | 2020-11-03 18:43 | DS ---
DATE OF DISCHARGE: 11/03/2020 HOSPITAL COURSE: The patient is resting, slightly propped up in bed, in no apparent distress. On questioning her, she denied any complaints. The nursing staff did not voice any concern. Her coronavirus PCR was negative. Her C. diff toxins were negative. Her influenza A and B were negative. Her urine culture has grown more than 100,000 colony forming units per mL of gram-negative rods identified as Escherichia coli sensitive to oral antibiotic. Unfortunately, the patient is allergic to all major classes of antibiotic and therefore we treated her with meropenem and she will be discharged home on a short course to complete the course of treatment with doxycycline. We did also 6-minute walk and the patient will require 2 liters of oxygen at rest and 3 liters on exertion. PHYSICAL EXAMINATION: GENERAL: When I examined her today, she looked pale, but no jaundice or cyanosis. No lymphadenopathy, no thyromegaly. No jugular venous distension. No limb edema. VITAL SIGNS: Her heart rate was 79, blood pressure was 128/75, temperature was 98.4, respiratory rate was 16, and oxygen saturation was 94% on 2 liters of oxygen. HEAD, EYES, EARS, NOSE AND THROAT: Showed normocephalic, atraumatic. NECK: Supple. HEART: Showed normal first and second heart sounds. No gallop, rub or murmur. CHEST: Clear to auscultation. No crepitation or rhonchi. ABDOMEN: Distended, soft. No guarding or rigidity. No organomegaly. All hernial orifice intact. Bowel sounds normal. NEUROLOGIC: She was somewhat hard of hearing, otherwise all cranial nerves intact. She ambulates with a walker. LABORATORY DATA: This morning showed a white cell count of 9100, hemoglobin was 12, hematocrit 36, MCV 94 and platelet count 209,000. Her chemistry showed a serum sodium 136, potassium 3.5, chloride 101, bicarbonate 25, anion gap of 10, BUN 14, creatinine was 1.9, estimated GFR was 25 mL per minute. Her glucose was 88 and calcium was 8.1 and her bilirubin, AST and ALT are normal. Alkaline phosphatase slightly elevated. Total protein 5.6, albumin was 1.9. DISCHARGE MEDICATIONS: The patient was discharged home to continue on doxycycline 100 mg twice a day for 5 more days, amlodipine 5 mg once a day, aspirin 81 mg once a day, atorvastatin calcium 80 mg at bedtime, benzonatate 200 mg 3 times a day, Symbicort 1 puff twice a day, carbamazepine 250 mg chewable tablet at bedtime, citalopram hydrobromide 20 mg daily, Aricept 5 mg at bedtime, lisinopril 20 mg once a day, Namenda 5 mg twice a day, nystatin powder apply topically twice a day, and trazodone 100 mg once a day. FINAL DISCHARGE DIAGNOSES: 1. Acute on chronic diastolic congestive heart failure. 2. Chronic obstructive pulmonary disease as she is oxygen dependent. 3. Hypertension. 4. Hyperlipidemia. 5. Trigeminal neuralgia. 6. Dementia. 7. Urinary tract infection with growth of Escherichia coli sensitive to oral antibiotic. KEESHA PRO MD DR: KIM/tal JOB#: [id number] / [id number]
== END 2020-11-03 14:41 | disposition home or self-care (01) | DRG 291 ==
LOC: ER 23:20 → 1 SOUTH 10-31 02:53
PROVIDERS: ADMIT Internal Medicine; ATTEND Internal Medicine
DX: I13.0 Hypertensive heart and chronic kidney disease with heart failure and stage 1 through stage 4 chronic kidney disease, or unspecified chronic kidney disease (principal); J96.01 Acute respiratory failure with hypoxia; I50.33 Acute on chronic diastolic (congestive) heart failure; K57.92 Diverticulitis of intestine, part unspecified, without perforation or abscess without bleeding; N39.0 Urinary tract infection, site not specified; B96.20 Unspecified Escherichia coli [E. coli] as the cause of diseases classified elsewhere; D64.9 Anemia, unspecified; E78.5 Hyperlipidemia, unspecified; E86.0 Dehydration; F02.80 Dementia in other diseases classified elsewhere, unspecified severity, without behavioral disturbance, psychotic disturbance, mood disturbance, and anxiety; G30.9 Alzheimer's disease, unspecified; G50.0 Trigeminal neuralgia; I25.10 Atherosclerotic heart disease of native coronary artery without angina pectoris; J44.9 Chronic obstructive pulmonary disease, unspecified; K52.9 Noninfective gastroenteritis and colitis, unspecified; K80.20 Calculus of gallbladder without cholecystitis without obstruction; M15.9 Polyosteoarthritis, unspecified; N18.30 Chronic kidney disease, stage 3 unspecified; Z82.49 Family history of ischemic heart disease and other diseases of the circulatory system; Z90.49 Acquired absence of other specified parts of digestive tract; Z90.710 Acquired absence of both cervix and uterus; Z99.81 Dependence on supplemental oxygen; F41.9 Anxiety disorder, unspecified; G89.29 Other chronic pain; Z88.0 Allergy status to penicillin; Z88.2 Allergy status to sulfonamides; Z20.822 Contact with and (suspected) exposure to COVID-19
CPT/HCPCS: 36415; 71045; 74022; 74176; 80048; 80053; 80076; 80202; 81001; 82150; 82550; 83690; 84484; 85025; 85027; 85610; 85730; 87077; 87086; 87186; 87493; 87804; 93005; 96361; 96374; 96375; G0238; J1160; J1650; J1940; J2185; J2405; J3370; J3490; J7050; J7120; P9612; U0003; U0005; 97530; 99285-25